=== PATIENT | male | born 1990 | race Caucasian/White ===

== ENCOUNTER 2016-06-19 15:13 | Emergency (ER) | payer OTHER ==
--- NOTE | 2016-06-19 17:02 | EDPHY ---
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 In the ER for evaluation. Mild pain. PHYSICAL EXAM (Prior to examination, patient consented to physical exam, hands were washed and my usual and customary physical exam procedures followed) 1) GENERAL: Well-developed, well-nourished, alert and oriented. Appears to be in no acute distress. 2) HEAD: Normocephalic 3) HEENT: sclera anicteric 4) LUNGS: Breathing comfortably. 5) SKIN: on the patient's abdominal epigastrium he has a 4 cm x 4 cm area of granulating tissue with no blistering, no signs of infection . No foul odor. Abdominal compartments soft Smoking Status: Former smoker Constitutional: Initial Vital Signs Temperature (C) 37.1 C 06/19/16 15:30 Heart Rate 79 06/19/16 15:30 Respiratory Rate 14 06/19/16 15:30 Blood Pressure 143/89 H 06/19/16 15:30 O2 Sat (%) 96 06/19/16 15:30 O2 Delivery Mode Room Air Allergies/Adverse Reactions: hydrocodone Allergy (Verified 06/19/16 15:32) MDM/Departure - MDM ED Course/Re-evaluation: Well granulating wound with no signs of infection. Granulating appropriately. Dressed with antibiotic ointment sterile dressing. His tetanus is already up-to -date. Recommend ibuprofen and acetaminophen for pain control. - Depart Disposition: Home, Routine, Self-Care Clinical Impression: Burn of abdomen Qualifiers: Encounter type: initial encounter Burn degree: second degree Qualifier Code: ( [id number]) Burn of second degree of abdominal wall, initial encounter Condition: Good Instructions: Second Degree Burn (ED) Additional Instructions: Return to the ER if you develop redness, swelling, discharge, warmth to the wound, r or any other symptoms that concern you. Stand Alone Forms: Work Comp Follow Up Referrals: Follow-up, with your work comp provider in 2 days [Other] - As per Instructions
[2016-06-19 17:11] VITALS: BP 138/72; PULSE 77; RESP 16; TEMP 97.3; O2SAT 92
== END 2016-06-19 17:25 | disposition home or self-care (01) ==
PROC: 2W23X4Z Dressing of Abdominal Wall using Bandage (ICD-10-PCS; principal; 2016-06-19)
DX: T21.22XA Burn of second degree of abdominal wall, initial encounter (principal); T31.0 Burns involving less than 10% of body surface; Z87.891 Personal history of nicotine dependence; X19.XXXA Contact with other heat and hot substances, initial encounter; Y92.69 Other specified industrial and construction area as the place of occurrence of the external cause; Y99.0 Civilian activity done for income or pay; Y93.89 Activity, other specified